=== PATIENT | male | born 1955 | race Caucasian/White ===

== ENCOUNTER 2018-06-15 05:28 | Day surgery (SDC) | payer OTHER ==
[~2018-06-15 05:28] MED LIST: AMBIEN10 MG PO; CIPRO750 MG PO; CLONAZEPAM1 MG PO; DOCUSATE SODIU100 MG PO; LYRICA300 MG PO; METHYLPRED4 MG/DOSE- PO; NEURONTIN PO; PERCOCET 5/321 UDTAB PO; PERCOCET 5/3251 TAB PO; TRAMADOL HCL50 MG PO
[2018-06-15] MEDS ORDERED: KEFLEX500 MG PO (09:07)
[2018-06-15] MEDS ORDERED: SURFAK240 M1 PO (09:07)
== END 2018-06-15 12:15 | disposition home or self-care (01) ==
LOC: CIR.AMB 05:28
DX: K43.9 Ventral hernia without obstruction or gangrene (principal)

== ENCOUNTER 2020-01-27 18:09 | Emergency (ER) | payer OTHER ==
[~2020-01-27] VITALS: Ht 180.3 cm; Wt 86.2 kg
[~2020-01-27 18:09] MED LIST changes: +KEFLEX500 MG PO; +SURFAK240 M1 PO
[2020-01-27] MEDS ORDERED: PERCOCET 10-321 EACH (18:28)
[2020-01-28] MEDS ORDERED: INTESTINEX680 M2 PO (09:49)
[2020-01-28] MEDS ORDERED: FLAGYL500MG PO (09:49)
[2020-01-28] MEDS ORDERED: CIPRO500 MG PO (09:49)
== END 2020-01-28 10:00 | disposition home or self-care (01) ==
LOC: ER 18:09
DX: K52.1 Toxic gastroenteritis and colitis (principal); K59.09 Other constipation; N28.1 Cyst of kidney, acquired; G89.29 Other chronic pain; M54.5 Low back pain; T40.2X5A Adverse effect of other opioids, initial encounter; T39.1X5A Adverse effect of 4-Aminophenol derivatives, initial encounter; T40.4X5A Adverse effect of other synthetic narcotics, initial encounter; Y92.89 Other specified places as the place of occurrence of the external cause

== ENCOUNTER 2022-05-27 04:01 | Emergency (ER) | payer OTHER ==
[~2022-05-27] VITALS: Ht 180.3 cm; Wt 87.5 kg
[~2022-05-27 04:01] MED LIST changes: +CIPRO500 MG PO; +FLAGYL500MG PO; +INTESTINEX680 M2 PO; +PERCOCET 10-321 EACH
[2022-05-27] MEDS ORDERED: KETO10TA2 PO (06:14)
[2022-05-27] MEDS ORDERED: ORPHENADRINE C100 MG PO (06:14)
== END 2022-05-27 06:19 ==
LOC: ER 04:01
DX: M54.50 Low back pain, unspecified (principal); E03.9 Hypothyroidism, unspecified

== ENCOUNTER 2022-07-09 13:12 | Emergency (ER) | payer OTHER ==
[~2022-07-09] VITALS: Ht 180.3 cm; Wt 86.2 kg
[~2022-07-09 13:12] MED LIST changes: +KETO10TA2 PO; +ORPHENADRINE C100 MG PO
== END 2022-07-09 17:42 | disposition home or self-care (01) ==
LOC: ER 13:12
DX: F41.9 Anxiety disorder, unspecified (principal); R25.9 Unspecified abnormal involuntary movements; I10 Essential (primary) hypertension

== ENCOUNTER 2023-09-01 08:56 | Emergency (ER) | payer OTHER ==
[~2023-09-01] VITALS: Ht 180.3 cm; Wt 90.3 kg
[2023-09-01] MEDS ORDERED: SIMVASTATIN5 MG (09:33)
[2023-09-01] MEDS ORDERED: TOBRADEX EYE DRO5 ML OP (10:19)
== END 2023-09-01 10:55 | disposition home or self-care (01) ==
LOC: ER 08:56
DX: M54.50 Low back pain, unspecified (principal); H10.9 Unspecified conjunctivitis
CPT/HCPCS: 96372; 99232; J1885; J2360

== ENCOUNTER 2023-11-18 09:37 | Emergency (ER) | payer OTHER ==
[~2023-11-18] VITALS: Ht 180.3 cm; Wt 90.7 kg
[~2023-11-18 09:37] MED LIST changes: +SIMVASTATIN5 MG; +TOBRADEX EYE DRO5 ML OP
[2023-11-18] MEDS ORDERED: TRAMADOL HCL50 MG (09:43)
== END 2023-11-18 11:54 | disposition home or self-care (01) ==
LOC: ER 09:37
DX: M54.50 Low back pain, unspecified (principal)
CPT/HCPCS: 72100; 96372; 99284; J1885; J2250; J3301; J3490

== ENCOUNTER 2024-03-07 07:56 | Emergency (ER) | payer OTHER ==
[~2024-03-07] VITALS: Ht 152.4 cm; Wt 90.7 kg
[~2024-03-07 07:56] MED LIST changes: +TRAMADOL HCL50 MG
[2024-03-07] MEDS ORDERED: RINGERS SOLUTION,LACTATED 250 ML IV STA (08:37)
[2024-03-07] MEDS ORDERED: ONDANSETRON HCL 2 MG/ML VIAL IV STA (08:38)
[2024-03-07] MEDS ORDERED: HYOSCYAMINE SULFATE 0.125 MG TAB.SUBL SL ONE (08:45)
[2024-03-07] MEDS ORDERED: KETOROLAC TROMETHAMINE 15 MG VIAL IV STA (09:32)
[2024-03-07] MEDS ORDERED: ORPHENADRINE CITRATE 30 MG/ML AMPUL IM STA (09:33)
[2024-03-07] MEDS ORDERED: METHYLPREDNISOLONE SOD SUCC 125 MG VIAL IV STA (09:34)
[2024-03-07] MEDS ORDERED: DEXTROSE 5 % AND 0.9 % NACL 500 ML IV STA (09:35)
[2024-03-07] MEDS ORDERED: PROMETHAZINE HCL 25 MG/ML AMPUL IM ONE (12:30)
[2024-03-07] MEDS ORDERED: MEPERIDINE HCL/PF 50 MG/ML VIAL IM ONE (12:30)
== END 2024-03-07 12:58 | disposition home or self-care (01) ==
LOC: ER 07:56
DX: M54.89 Other dorsalgia (principal); G89.29 Other chronic pain
CPT/HCPCS: 96365; 96366; 96372; 99282; J1885; J2360; J7070

== ENCOUNTER 2025-06-02 07:57 | Outpatient (CLI) | payer OTHER ==
[~2025-06-02 07:57] MED LIST changes: +BUPROPION XL150 MG; +BUPROPION XL150 MG PO; +CLONAZEPAM2 MG; +CLONAZEPAM2 MG PO; +HYDROCODON-ACE1 EAC6; +SIMVASTATIN20 MG PO
== END 2025-06-02 08:02 | disposition home or self-care (01) ==
LOC: RAD 07:57
PROVIDERS: ATTEND Orthopaedic Surgery Orthopaedic Surgery of the Spine
DX: R07.9 Chest pain, unspecified (principal)

== ENCOUNTER 2025-06-16 12:00 | Inpatient (IN) | payer OTHER ==
[~2025-06-16] VITALS: Ht 180.3 cm; Wt 89.8 kg
[2025-06-16] MEDS ORDERED: TRAMADOL HCL E100 M1 (13:29)
[2025-06-16] MEDS ORDERED: AMBIEN10 MG PO (13:30)
[2025-06-16] MEDS ORDERED: [UNRECOGNIZED DRUG - OTHER] (13:30)
[2025-06-16] MEDS ORDERED: NEURONTIN800 MG PO (13:31)
[2025-06-20] MEDS ORDERED: PERCOCET 5-3251 EACH PO (07:53)
[2025-06-20] MEDS ORDERED: COLACE100 MG PO (07:54)
[2025-06-20] MEDS ORDERED: AMOX-CLAV 875-1 EACH PO (07:54)
[2025-06-20] MEDS ORDERED: MEDROLPACK PO (07:54)
[2025-06-20] MEDS ORDERED: ZOFRAN8 MG PO (07:55)
[2025-06-20] MEDS ORDERED: GABAPENTIN100 M2 PO (07:56)
[2025-06-20] MEDS ORDERED: NEURONTIN800 MG PO (07:57)
[2025-06-20] MEDS ORDERED: VANCOMYCIN HCL 1,000 MG VIAL ONE ×3 (09:58→09:59)
[2025-06-20] MEDS ORDERED: HEMOSTATIC MATRIX 1 KIT KIT TOP ONE (09:58)
[2025-06-20] MEDS ORDERED: METHYLPREDNISOLONE SOD SUCC 125 MG VIAL ONE (09:59)
[2025-06-20] MEDS ORDERED: CEFAZOLIN SODIUM 1,000 MG VIAL ONE ×2 (09:59→17:40)
[2025-06-20] MEDS ORDERED: DOCUSATE SODIUM 100MG CAP PO SCH (13:00)
[2025-06-20] MEDS ORDERED: ENALAPRILAT DIHYDRATE 1.25 MG/ML VIAL IV PRN (13:00)
[2025-06-20] MEDS ORDERED: MORPHINE SULFATE 4 MG/ML CARTRIDGE IV SCH (13:00)
[2025-06-20] MEDS ORDERED: 0.9 % SODIUM CHLORIDE 1,000 ML IV SCH (13:00)
[2025-06-20] MEDS ORDERED: PROMETHAZINE HCL 50 MG/ML AMPUL IM PRN (13:00)
[2025-06-20] MEDS ORDERED: METHYLPREDNISOLONE ACETATE 80 MG/ML VIAL ONE (13:19)
[2025-06-20] MEDS ORDERED: MORPHINE SULFATE 4 MG/ML VIAL IV ONE ×2 (16:45→17:15)
[2025-06-20] MEDS ORDERED: CEFAZOLIN SODIUM 1,000 MG in 0.9 % SODIUM CHLORIDE 50 ML IV SCH (17:00)
[2025-06-20] MEDS ORDERED: METHYLPREDNISOLONE SOD SUCC 125 MG VIAL IV SCH (17:00)
[2025-06-20] MEDS ORDERED: ENALAPRILAT DIHYDRATE 1.25 MG/ML VIAL IV ONE ×2 (17:40→17:45)
[2025-06-20] MEDS ORDERED: KETOROLAC TROMETHAMINE 30 MG VIAL ONE (18:07)
[2025-06-20] MEDS ORDERED: KETOROLAC TROMETHAMINE 30 MG VIAL IV ONE (18:15)
[2025-06-20 18:57] VITALS: BP 200/100; O2SAT 99
[2025-06-20] MEDS ORDERED: ACETAMINOPHEN 500 MG GEL..CAP PO SCH (20:00)
[2025-06-20] MEDS ORDERED: ZOLPIDEM TARTRATE 10 MG TABLET PO SCH (21:00)
[2025-06-20] MEDS ORDERED: VANCOMYCIN HCL 1,000 MG VIAL IV SCH (21:00)
[2025-06-20] MEDS ORDERED: GABAPENTIN 800 MG TABLET PO SCH (21:00)
[2025-06-20 21:22] VITALS: BP 180/90; O2SAT 99
[2025-06-21] VITALS: BP 186/79; O2SAT 100
[2025-06-21] MEDS ORDERED: SODIUM CHLORIDE 0.45 % 1,000 ML IV SCH
[2025-06-21] MEDS ORDERED: OxyCODONE HCL 5 MG TABLET (ROXICODONE) PO PRN (06:01)
[2025-06-21 06:06] VITALS: BP 162/83; O2SAT 100
[2025-06-21 07:06] LABS: BASO % 0.0 % (0.1-1.2); EOS # 0.00 (0.04-0.54); EOS % 0.0 % (0.7-7.0); LYMPH # 0.73 (1.18-3.74); LYMPH % 7.9 % (19.3-53.1); MEAN PLATELET VOLUME 11.00 fl (9.4-12.4); MONO # 0.19 (0.24-0.82); MONO % 2.1 % (4.7-12.5); NEUT # 8.23 (1.56-6.13); NEUT % 89.6 % (34.0-71.1); RED CELL DISTRIBUTION WIDTH 13.9 % (11.6-14.4)
[2025-06-21 07:49] LABS: BUN CREA RATIO 11.0 (7.0-25.0); CREATININE SERUM 1.01 mg/dL (0.70-1.30); GFR 73.68; GLUCOSE FASTING 154.0 mg/dL (65-100); OSMOLALITY SERUM 282.0 MOSM/KG (275-295)
[2025-06-21 08:00] VITALS: BP 160/90; O2SAT 99
[2025-06-21] MEDS ORDERED: TAMSULOSIN HCL 0.4 MG CAP PO SCH (09:00)
[2025-06-21 12:31] VITALS: BP 136/75; O2SAT 99
== END 2025-06-21 12:57 | disposition home or self-care (01) | DRG 402 ==
LOC: O/R 06-20 11:27 → SURH 06-20 12:00 → PED 06-20 17:29
PROVIDERS: ADMIT Orthopaedic Surgery Orthopaedic Surgery of the Spine; ATTEND Orthopaedic Surgery Orthopaedic Surgery of the Spine
PROC: XRGB0R7 Fusion of Lumbar Vertebral Joint using Custom-Made Anatomically Designed Interbody Fusion Device, Open Approach, New Technology Group 7 (ICD-10-PCS; 2025-06-20)
PROC: 0ST20ZZ Resection of Lumbar Vertebral Disc, Open Approach (ICD-10-PCS; 2025-06-20)
PROC: 0QB30ZZ Excision of Left Pelvic Bone, Open Approach (ICD-10-PCS; 2025-06-20)
PROC: 07DR0ZZ Extraction of Iliac Bone Marrow, Open Approach (ICD-10-PCS; 2025-06-20)
PROC: 4A1104G Monitoring of Peripheral Nervous Electrical Activity, Intraoperative, Open Approach (ICD-10-PCS; 2025-06-20)
PROC: 0SG0071 Fusion of Lumbar Vertebral Joint with Autologous Tissue Substitute, Posterior Approach, Posterior Column, Open Approach (ICD-10-PCS; principal; 2025-06-20 13:00)
DX: M48.062 Spinal stenosis, lumbar region with neurogenic claudication (principal); M51.361 Other intervertebral disc degeneration, lumbar region with lower extremity pain only; M96.1 Postlaminectomy syndrome, not elsewhere classified; I10 Essential (primary) hypertension; F41.9 Anxiety disorder, unspecified; M51.360 Other intervertebral disc degeneration, lumbar region with discogenic back pain only; M47.26 Other spondylosis with radiculopathy, lumbar region

== ENCOUNTER 2025-07-26 08:23 | Outpatient (CLI) | payer OTHER ==
[~2025-07-26 08:23] MED LIST changes: +AMOX-CLAV 875-1 EACH PO; +COLACE100 MG PO; +GABAPENTIN100 M2 PO; +MEDROLPACK PO; +NEURONTIN800 MG PO; +PERCOCET 5-3251 EACH PO; +TRAMADOL HCL E100 M1; +ZOFRAN8 MG PO; +[UNRECOGNIZED DRUG - OTHER]
== END 2025-07-26 08:24 | disposition home or self-care (01) ==
LOC: RAD 08:23
PROVIDERS: ATTEND Orthopaedic Surgery Orthopaedic Surgery of the Spine
DX: Z98.1 Arthrodesis status (principal)